=== PATIENT | female | born 1950 | race Hispanic/Latino ===

== ENCOUNTER 2017-09-08 15:47 | Observation (INO) | payer OTHER ==
--- NOTE | 2017-09-08 16:14 | ED PDOC ---
Arrival/HPI - General Chief Complaint: Altered Mental Status Time Seen by Provider: 09/08/17 15:59 Historian: Patient - History of Present Illness Narrative History of Present Illness (Text): 67yoF, with acute confusion, sent by dentist to primary care clinic who sent to ED via EMS. pt states headache but no dental pain/n/v/abdomen pain/numbness/ tingling/loss of limb function/pain with urination. 09/08/17 16:11 Time/Duration: 1-3 hours Symptom Onset: Sudden Symptom Course: Unchanged Activities at Onset: Rest Context: Sitting Past Medical History - Provider Review Nursing Documentation Reviewed: Yes - Travel History Have you recently traveled outside [place] w/in the past 3 mons?: No - Infectious Disease Hx of Infectious Diseases: None - Reproductive Menopause: Yes - Cardiac Hx Pacemaker: No - Pulmonary Hx Respiratory Disorders: No - Neurological Hx Paralysis: No - Hematological/Oncological Hx Blood Transfusions: No Hx Blood Transfusion Reaction: No - Musculoskeletal/Rheumatological Hx Musculoskeletal Disorders: No - Psychiatric Hx Emotional Abuse: No Hx Physical Abuse: No Hx Substance Use: No - Anesthesia Hx Anesthesia Reactions: No Hx Malignant Hyperthermia: No - Suicidal Assessment Feels Threatened In Home Enviroment: No Family/Social History - Physician Review Nursing Documentation Reviewed: Yes Family/Social History: No Known Family HX Smoking Status: Never Smoked Hx Alcohol Use: Yes Hx Substance Use: No Allergies/Home Meds Allergies/Adverse Reactions: Allergies BEE STINGS Allergy (Severe, Uncoded 09/08/17 16:10) ANAPHYLAXIS Home Medications: Home Meds Medication Instructions Recorded Confirmed No Known Home Med 09/08/17 09/08/17 Review of Systems - Review of Systems Constitutional: Normal Eyes: Normal ENT: Normal Respiratory: Normal Cardiovascular: Normal Gastrointestinal: Normal Genitourinary Female: Normal Musculoskeletal: Normal Skin: Normal Neurological: Headache Endocrine: Normal Hemo/Lymphatic: Normal Psychiatric: Normal Physical Exam Vital Signs Temp Pulse Resp BP Pulse Ox 09/08/17 17:21 92 H 18 155/89 H 96 09/08/17 16:50 92 H 18 179/116 H 96 09/08/17 16:21 98.2 F 87 18 192/104 H 97 Temperature: Afebrile Appearance: Positive for: Well-Appearing, Non-Toxic, Comfortable Pain Distress: None Mental Status: Positive for: Alert and Oriented X 3 - Systems Exam Head: Present: Atraumatic, Normocephalic Pupils: Present: PERRL Extroacular Muscles: Present: EOMI Conjunctiva: Present: Normal Ears: Present: Normal Mouth: Present: Moist Mucous Membranes Pharnyx: Present: Normal Nose (External): Present: Atraumatic Nose (Internal): Present: Normal Inspection Neck: Present: Normal Range of Motion Respiratory/Chest: Present: Clear to Auscultation, Good Air Exchange Cardiovascular: Present: Regular Rate and Rhythm Abdomen: No: Tenderness, Distention, Normal Bowel Sounds, Peritoneal Signs, Rebound, Guarding, McBurney's Point Tender, Rovsing's Sign Present, Hernias, Feeding Tubes, Ostomy Tubes, Mass/Organomegaly, Scars, Other Upper Extremity: Present: Normal Inspection Lower Extremity: Present: Normal Inspection Neurological: Present: GCS=15, CN II-XII Intact, Speech Normal, Motor Func Grossly Intact Skin: Present: Warm, Normal Color Psychiatric: Present: Alert, Oriented x 3, Normal Insight, Normal Concentration Medical Decision Making ED Course and Treatment: 67yoF, with acute confusion, sent by dentist to primary care clinic who sent to ED via EMS. pt states headache but no dental pain/n/v/abdomen pain/numbness/ tingling/loss of limb function/pain with urination. ct head no acute cxr no acute. ECG: NSR, flipped t waves avr 09/08/17 16:14 09/08/17 17:29 09/08/17 17:54 wbc 7 hb 16 plts 214 lactic 1.1 trop neg utox neg alcohol/nikki/acet neg ua trace LE wo symptoms d/w Dr. Gacria who stated can admit for observation remote telemetry, give metoprolol po 12.5mg, ativan 0.5mg, consult neurology Dr. Kohli, 09/08/17 17:55 Reassessment Condition: Re-examined, Improved - Lab Interpretations Lab Results: 09/08/17 16:10 09/08/17 16:10 Lab Results 09/08/17 16:58: Urine Opiates Screen Negative, Urine Methadone Screen Negative, Ur Barbiturates Screen Negative, Ur Phencyclidine Scrn Negative, Ur Amphetamines Screen Negative, U Benzodiazepines Scrn Negative, U Oth Cocaine Metabols Negative, U Cannabinoids Screen Negative 09/08/17 16:58: Urine Color Yellow, Urine Appearance Sl cloudy, Urine pH 6.5, Ur Specific [place] <= 1.005, Urine Protein Negative, Urine Glucose (UA) Negative, Urine Ketones Negative, Urine Blood Negative, Urine Nitrate Negative, Urine Bilirubin Negative, Urine Urobilinogen 0.2, Ur Leukocyte Esterase Small H , Urine RBC Negative, Urine WBC 1 - 3, Ur Epithelial Cells 0 - 2 09/08/17 16:10: Alcohol, Quantitative < 10 09/08/17 16:10: Salicylates < 1 L, Acetaminophen < 10.0 L 09/08/17 16:10: pO2 118 H, VBG pH 7.41, VBG pCO2 42.0, VBG HCO3 26.6, VBG Total CO2 27.9, VBG O2 Sat (Calc) 99.1 H, VBG Base Excess 1.7, VBG Potassium 3.8, Sodium 139.0, Chloride 106.0, Glucose 106 H, Lactate 1.1, FiO2 21.0, Venous Blood Potassium 3.8 09/08/17 16:10: Sodium 141, Chloride 105, Potassium 3.8, Carbon Dioxide 25, Anion Gap 15, BUN 12, Creatinine 0.6 L, Est GFR ( Amer) > 60, Est GFR ( Non-Af Amer) > 60, Random Glucose 108, Calcium 10.7 H, Magnesium 2.2, Total Bilirubin 1.2, AST 23, ALT 34, Alkaline Phosphatase 66, Lactate Dehydrogenase 448, Total Creatine Kinase 57, Troponin I < 0.01, Total Protein 7.8, Albumin 4.8 , Globulin 3.1, Albumin/Globulin Ratio 1.5 09/08/17 16:10: PT 11.4, INR 1.00, APTT 29.5 09/08/17 16:10: WBC 7.1, RBC 5.25, Hgb 16.1 H, Hct 46.5, MCV 88.6, MCH 30.7, MCHC 34.6, RDW 12.8, Plt Count 214, MPV 9.9, Gran % 65.0, Lymph % (Auto) 23.0, [place] % (Auto) 10.8 H, Eos % (Auto) 0.9 L, Baso % (Auto) 0.3, Gran # 4.59, Lymph # (Auto) 1.6, [place] # (Auto) 0.8 H, Eos # (Auto) 0.1, Baso # (Auto) 0.02 I have reviewed the lab results: Yes - RAD Interpretation Radiology Orders: 09/08/17 16:09 CHEST PORTABLE [RAD] Stat 09/08/17 16:10 HEAD W/O CONTRAST [CT] Stat Diamond Picker: Radiologist (ct head no acute, chest xray no active disease) - EKG Interpretation Interpreted by ED Physician: Yes (ECG: NSR, flipped t waves avr) Type: 12 lead EKG NIHSS Stroke Scale 3 - Date/Time Evaluation Performed Date Performed: 09/08/17 When Was NIHSS Performed: Baseline - How Severe is the Stroke Level of Consciousness: 0=Alert LOC to Questions: 0=Both comments correct LOC to commands: 0=Obeys both correctly Best Gaze: 0=Normal Visual: 0=No visual loss Facial: 0=Normal Motor Arm - Left: 0=No drift Motor Arm - Right: 0=No drift Motor Leg - Left: 0=No drift Motor Leg - Right: 0=No drift Limb Ataxia: 0=Absent Sensory: 0=Normal Best Language: 0=No aphasia Dysarthia: 0=Normal articulation Extinction & Inattention (Neglect): 0=Normal, no object Score: 0 Disposition/Present on Arrival - Present on Arrival Any Indicators Present on Arrival: No History of DVT/PE: No History of Uncontrolled Diabetes: No Urinary Catheter: No History of Decub. Ulcer: No History Surgical Site Infection Following: None - Disposition Have Diagnosis and Disposition been Completed?: Yes Diagnosis: Memory change Disposition: HOSPITALIZED Disposition Time: 17:57 Patient Plan: Admission Condition: IMPROVED Forms: [employer] (Ukrainian)
[2017-09-08 16:33] LABS: VENOUS BLOOD GAS BASE EXCESS 1.7 mmol/L (0.0-2.0); VENOUS BLOOD GAS PO2 118 mm/Hg (30-55); VENOUS BLOOD PH 7.41 (7.32-7.43)
[2017-09-08 16:35] LABS: BASO # 0.02 K/mm3 (0.0-2.0); BASO % 0.3 % (0.0-3.0); EOS # 0.1 (0.0-0.7); EOS % 0.9 % (1.5-5.0); GRAN # 4.59 (1.4-6.5); HEMOGLOBIN 16.1 g/dL (12.0-16.0); LYMPH # 1.6 (1.2-3.4); MEAN CELL VOLUME 88.6 fl (80.0-105.0); MEAN CORPUSCULAR HEMOGLOBIN 30.7 pg (25.0-35.0); MEAN CORPUSCULAR HGB CONC 34.6 g/dl (31.0-37.0); MEAN PLATELET VOLUME 9.9 fl (7.0-11.0); MONO # 0.8 (0.1-0.6); MONO % 10.8 % (1.0-6.0); RBC 5.25 10^6/uL (3.5-6.1); RED CELL DISTRIBUTION WIDTH 12.8 % (11.5-14.5); WHITE BLOOD COUNT 7.1 10^3/ul (4.5-11.0)
[2017-09-08 16:45] LABS: ALB/GLOB RATIO 1.5 (1.1-1.8); ALBUMIN 4.8 g/dL (3.0-4.8); ALT/SGPT 34 U/L (7-56); AST/SGOT 23 U/L (14-36); BLOOD UREA NITROGEN 12 mg/dL (7-21); CALCIUM 10.7 mg/dL (8.4-10.5); GFR AFRICAN-AMERICAN > 60; GFR NON-AFRICAN AMERICAN > 60
[2017-09-08 16:46] LABS: ACETAMINOPHEN < 10.0 ug/ml (10.0-20.0); SALICYLATE < 1 mg/dL (2.0-20.0)
--- NOTE | 2017-09-08 16:52 | RAD ---
HISTORY: 67yoF, confusion COMPARISON: No prior. FINDINGS: LUNGS: No active pulmonary disease. PLEURA: No significant pleural effusion identified, no pneumothorax apparent. CARDIOVASCULAR: Normal. OSSEOUS STRUCTURES: No significant abnormalities. VISUALIZED UPPER ABDOMEN: Normal. OTHER FINDINGS: None. IMPRESSION: No active disease.
[2017-09-08 16:55] LABS: TROPONIN I < 0.01 ng/mL
--- NOTE | 2017-09-08 16:57 | CT ---
PROCEDURE: CT HEAD WITHOUT CONTRAST. HISTORY: 67yoF, acute confusion COMPARISON: None available. TECHNIQUE: Axial computed tomography images were obtained through the head/brain without intravenous contrast. Radiation dose: Total exam DLP = 814 mGy-cm. This CT exam was performed using one or more of the following dose reduction techniques: Automated exposure control, adjustment of the mA and/or kV according to patient size, and/or use of iterative reconstruction technique. FINDINGS: HEMORRHAGE: No intracranial hemorrhage. BRAIN: No mass effect or edema. No atrophy or chronic microvascular ischemic changes. VENTRICLES: Unremarkable. No hydrocephalus. CALVARIUM: Unremarkable. PARANASAL SINUSES: Unremarkable as visualized. No significant inflammatory changes. MASTOID AIR CELLS: Unremarkable as visualized. No inflammatory changes. OTHER FINDINGS: None. IMPRESSION: No acute findings
[2017-09-08 17:09] LABS: PH,URINE 6.5 (4.7-8.0); URINE BILIRUBIN NEGATIVE (NEGATIVE); URINE BLOOD NEGATIVE (NEGATIVE); URINE GLUCOSE (UA) NEGATIVE (NEGATIVE); URINE LEUKOCYTE ESTERASE SMALL Leu/uL (NEGATIVE); URINE PROTEIN NEGATIVE mg/dL (<30 mg/dL); URINE UROBILINOGEN 0.2 E.U./dL (<1 E.U./dL)
[2017-09-08 17:12] LABS: PARTIAL THROMBOPLASTIN TIME 29.5 Seconds (25.1-36.5); PROTHROMBIN TIME 11.4 SECONDS (9.4-12.5)
[2017-09-08 17:13] LABS: URINE APPEARANCE SL CLOUDY (CLEAR); URINE COLOR YELLOW (YELLOW)
[2017-09-08 17:22] LABS: URINE EPITHELIAL CELLS 0 - 2 /hpf (0-5); URINE RBC NEGATIVE /hpf (0-2)
[2017-09-08 17:36] LABS: BARBITURATES, UR NEGATIVE (NEGATIVE); BENZODIAZEPINES, UR NEGATIVE (NEGATIVE); OPIATES, UR NEGATIVE (NEGATIVE); PHENCYCLIDINE, UR NEGATIVE (NEGATIVE)
[2017-09-08] MEDS: Metoprolol Succinate 25 mg XL Tab PO SCH (19:00)
[2017-09-08 19:21] VITALS: RESP 18
[2017-09-09 01:46] VITALS: BMI 25.1
[2017-09-09] MEDS ORDERED: Pneumococcal 23-Valent Vaccine IM ONE (01:46)
[2017-09-09] MEDS ORDERED: Influenza Vaccine 60 mcg/0.5 mL SYR (4YR UP) IM ONE (01:46)
[2017-09-09 08:20] VITALS: BP 107/67; TEMP 98.9; O2SAT 96
[2017-09-09] MEDS: Metoprolol Succinate 25 mg XL Tab PO SCH (08:57)
--- NOTE | 2017-09-09 11:30 | MRI ---
PROCEDURE: MRI BRAIN WITHOUT CONTRAST HISTORY: Confusion, CVA COMPARISON: None. TECHNIQUE: Multiplanar, multisequence MR images of the brain were obtained without intravenous contrast enhancement. FINDINGS: HEMORRHAGE: None DWI: No evidence of an acute or early subacute infarction. BRAIN PARENCHYMA: No mass effect or edema. Minimal microvascular changes are seen. VENTRICLES: Unremarkable. No hydrocephalus. CRANIUM: Unremarkable. ORBITS: Grossly unremarkable. PARANASAL SINUSES/MASTOIDS: Clear VASCULAR SYSTEM: Skull base flow voids intact. OTHER FINDINGS: None. IMPRESSION: No acute findings
[2017-09-09 13:04] VITALS: PULSE 82
--- NOTE | 2017-09-09 13:09 | PN ---
DATE: 09/09/2017 DAILY PROGRESS NOTE SUBJECTIVE: The patient is a 67-year-old female who was admitted to the [facility] yesterday after being very confused. She was moving all extremities; however, short-term memory was markedly depressed. Yesterday, she could not remember what her blood pressure was, although she was complaining of high blood pressure and a left-sided headache. CBC, chemistries were normal, although her blood pressure was elevated with a diastolic blood pressure of 104 in the emergency room. When seen this morning, the patient is talking on the phone to a friend. She is ambulating in the room. She is awake, alert and oriented. She does not recall any events from yesterday. Does not recall being at the dentist's office nor being in my office nor being in the squad coming to the hospital. The patient states that yesterday evening, she felt herself coming back to herself. This morning, she is awake, alert and oriented and she is acting her normal self. CAT scan yesterday was negative. MRI was performed earlier this morning and that too is negative. There were no lacunar infarcts or intracerebral bleeds noted. The patient is back at her baseline. We will consider discharging the patient to home. However, we will consult with the neurologist, Dr. Kohli prior to finalizing that order. FINAL DIAGNOSES: 1. Malignant hypertension. 2. Anxiety. 3. Possible transient ischemic attack. Ismael Garcia MD
--- NOTE | 2017-09-09 19:44 | CARD ---
APPROVED REPORT EKG Measurement Heart [id number] <Conclusion> Normal sinus rhythm Possible Left atrial enlargement Borderline ECG
--- NOTE | 2017-09-09 23:25 | HP ---
ADMITTING HISTORY AND PHYSICAL I would like the admitting history and physical to be read as follows, if you would be so kind. HISTORY OF PRESENT ILLNESS: The patient is a 67-year-old female who was brought to my office yesterday complaining of confusion, right-sided headache and high blood pressure. The patient was feeling well in the morning; however, she apparently broke her lower dentures. 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 When arriving at the dentist, she was found to be confused and the dentist staff brought her to my office. In my office, she was confused repeatedly asking the same questions over and over again complaining of headache and therefore we called the squad. She was brought to the emergency room, evaluated and admitted. PAST MEDICAL HISTORY: She has no past medical history. MEDICATIONS: She was taking no medications at the time of admission. SOCIAL HISTORY: She never smoked. Occasionally drinks alcohol. Wine with dinner. ALLERGIES: SHE HAS NO KNOWN MEDICAL ALLERGIES, BUT IS KNOWN TO HAVE AN ANAPHYLACTIC REACTION TO BEE STINGS. REVIEW OF SYSTEMS: Otherwise negative. PHYSICAL EXAMINATION: VITAL SIGNS: In the emergency room blood pressure was 192/104, heart rate of 87. She was afebrile at 98.2 degrees Fahrenheit. GENERAL: She was awake, alert and oriented. There were no focal neurological signs. However, her short-term memory was markedly decreased. HEENT: Head, eyes, ears, nose and throat were unremarkable. NECK: Supple with no lymphadenopathy. No goiter. No carotid bruits were appreciated. LUNGS: Clear to auscultation and percussion. HEART: Regular. No murmurs appreciated. ABDOMEN: Soft, nontender with no organomegaly. EXTREMITIES: Free of cyanosis, clubbing or edema. LABORATORY STUDIES: In the emergency room showed white blood cell count to be 7.1, hemoglobin and hematocrit of 16.1 and 46.5, platelet count is 214. Sodium is 141, potassium 3.8, blood urea nitrogen 12, creatinine 0.6. EKG showed regular sinus rhythm. Chest x-ray showed no acute disease and CAT scan of the head was read as negative. ASSESSMENT AND PLAN: The patient is to be started on metoprolol 12.5 mg once a day and will be reevaluated in the morning. Consultation from Dr. Kohli, the neurologist is requested. Ismael Garcia MD
--- NOTE | 2017-09-10 01:06 | CON ---
HISTORY OF PRESENT ILLNESS: This is a 67-year-old white female with past medical history not significant, came with the complaint of acute confusion. The patient went to dentist and found her confused, sent her be seen in the hospital. Denies any headache, but forgets about the episode was happening yesterday, did not have a recollection of the events, and lasted for 2 to 3 hours, and called to evaluate the patient. PAST MEDICAL HISTORY: Not significant. REVIEW Of SYSTEMS: A 10-point review of systems was negative except episode of her memory loss. PHYSICAL EXAMINATION: VITAL SIGNS: Blood pressure was 192/104. HEENT: Normocephalic, atraumatic. NECK: Supple. NEUROLOGIC: Alert, awake, oriented x3. No aphasia. Cranial nerves II to XII are tested. Pupils reactive. EOM intact. Visual field full. No facial asymmetry. Tongue midline. Motor: Moves all the extremities equally. Tone normal. Deep tendon reflexes 1+. Both plantars downgoing. Sensory appears intact. Cerebellar gait normal. LABORATORY DATA: WBC 7.1, hemoglobin 16.1, hematocrit 46.5, platelets 214. Sodium 141, potassium 3.8, chloride 105, CO2 of 25, glucose 108, BUN 12, creatinine 0.6. MRI, CAT scan of the head reviewed. They were negative for any lesion. ASSESSMENT AND PLAN: The patient was started on aspirin 81 mg p.o. daily, continue present management. We will follow up. Selvin Kohli MD
== END 2017-09-09 14:33 | disposition home or self-care (01) ==
LOC: ED 15:47 → ERH 18:02 → 3RNO 21:16
PROVIDERS: ADMIT Internal Medicine; ATTEND Internal Medicine
DX: I10 Essential (primary) hypertension (principal); R41.0 Disorientation, unspecified; F41.9 Anxiety disorder, unspecified; R51 Headache
CPT/HCPCS: 70450; 70551; 71045; 80053; 80320; 80324; 80329; 80345; 80346; 80349; 80353; 80358; 80361; 81001; 82550; 82803; 83615; 83735; 83992; 84484; 85025; 85610; 85730; 87040; 87086; 93005; 99285; G0378